=== PATIENT | female | born 2000 | race Caucasian/White ===

== ENCOUNTER 2021-02-11 15:08 | Emergency (ER) | payer OTHER ==
[2021-02-11] MEDS ORDERED: SODIUM CHLORIDE 1,000 ML IV STA (15:51)
[2021-02-11] MEDS ORDERED: ACETAMINOPHEN 1000 MG/100 ML VIAL (NON FORMULARY) IVPB ONE (15:51)
[2021-02-11 15:52] VITALS: BMI 24.1
[2021-02-11] MEDS ORDERED: METOCLOPRAMIDE HCL INJECTION 10 MG/2 ML VIAL IVPUSH ONE (16:03)
[2021-02-11] MEDS ORDERED: ACETAMINOPHEN INJECTION 100 ML IVPB ONE (16:20)
[2021-02-11] MEDS ORDERED: METOCLOPRAMIDE HCL INJECTION 10 MG/2 ML VIAL ONE (16:20)
[2021-02-11 18:56] VITALS: BP 110/68; PULSE 78; TEMP 98.6
== END 2021-02-11 18:56 | disposition home or self-care (01) ==
LOC: JER 15:08
PROC: 3E033NZ Introduction of Analgesics, Hypnotics, Sedatives into Peripheral Vein, Percutaneous Approach (ICD-10-PCS; principal; 2021-02-11)
PROC: 3E033GC Introduction of Other Therapeutic Substance into Peripheral Vein, Percutaneous Approach (ICD-10-PCS; 2021-02-11)
PROC: 3E0337Z Introduction of Electrolytic and Water Balance Substance into Peripheral Vein, Percutaneous Approach (ICD-10-PCS; 2021-02-11)
DX: R11.2 Nausea with vomiting, unspecified (principal)
CPT/HCPCS: 99285-25; J0131